=== PATIENT | female | born 1980 | race African-American/Black ===

== ENCOUNTER 2022-11-29 11:24 | Outpatient (CLI) | payer BC, OTHER, SELFPAY ==
[2022-11-29 13:56] LABS: Basophils Percent Auto 0.5 % (0.2-1.2); Eosinophils Absolute Auto 0.1 K/mm3 (0-0.3); Eosinophils Percent Auto 1.1 % (0-4.4); Hematocrit 33.4 % (37.0-47.0); Hemoglobin 11.5 g/dL (12.0-15.0); Immature Granulocyte Absolute 0.02 K/mm3 (0.00-0.031); Immature Granulocyte Percent A 0.3 % (0-0.5); Lymphocytes Absolute Auto 3.37 K/mm3 (0.9-3.2); Lymphocytes Percent Auto 44.4 % (18.3-44.2); Mean Corpuscular HGB Conc 34.4 g/dl (32-36); Mean Corpuscular Hemoglobin 25.9 pg (26-34); Mean Corpuscular Volume 75.2 fl (80-100); Mean Platelet Volume 10.4 fl (7.4-10.4); Monocytes Absolute Auto 0.9 K/mm3 (0.1-0.6); Monocytes Percent Auto 11.6 % (2.6-8.5); Neutrophils Absolute Auto 3.2 K/mm3 (1.3-6.7); Neutrophils Percent Auto 42.1 % (45.5-73.1); Platelet Count Result 488 k/mm3 (150-375); Red Blood Count 4.44 M/mm3 (4.2-5.4); Red Cell Distribution Width 14.7 % (11.5-14.5); White Blood Count 7.6 K/mm3 (4.5-10.0)
== END 2022-11-29 11:25 | disposition home or self-care (01) ==
PROVIDERS: PCP Internal Medicine Infectious Disease; Visit Provider Obstetrics & Gynecology
DX: N85.2 Hypertrophy of uterus (principal); Z01.818 Encounter for other preprocedural examination
CPT/HCPCS: 36415; 85025; 86850; 86900; 86901

== ENCOUNTER 2022-12-06 00:27 | Day surgery (SDC) | payer BC, OTHER, SELFPAY ==
[2022-11-26 12:32] VITALS: BMI 40.4
--- NOTE | 2022-11-26 12:38 | PC.NURSE ---
Report to the Outpatient Waiting Room, entrance under the green pavilion located off [facility], at time 7:30 on date 12/06/22. Planned Procedure Time: 9:30. Time changes happen often and if your time is changed the preop area will call you the afternoon before. - You and your visitor will be asked to self-screen and do not enter if you have any COVID symptoms. - Only one visitor is requested with a max of two and NO children visitors are allowed at this time. - The patient visitor may be requested to leave or wait in car when not with patient due to distancing restrictions. - A mask is REQUIRED within the hospital. Patients may have clear liquids (water, carbonated beverages, clear teas, apple juice) until 3 hours prior to surgery (6:30) with a maximum of 20 ounces. - No food from midnight until time of surgery Take the following medications with a SIP of water the morning of surgery: NASAL SPRAY IF NEEDED Medications to discontinue per physician: N/A Date to take last dose: N/A Please no make-up, nail canadian, hairspray, perfume, deodorant, or body powder the day of surgery. No jewelry (including any body piercings) or valuables the day of surgery, leave them at home. Please take a shower or bath the night before, or the morning of, surgery with an antibacterial soap. Wear comfortable, loose fitting clothing. - Jewelry must be removed prior to entering the operating room. Rings and piercings that are not removed may be cut off. - The hospital will not accept responsibility for valuables. - Please leave all valuables, including medications, at home the day of surgery. If you are going home after surgery, a licensed water taxi driver must drive you home. - NO public transportation without another adult if you receive anesthesia. - We recommend that an adult stay with you for 24 hours following discharge. - We also recommend that you do not drive, make important decision, drink alcoholic beverages, or take any drugs that were not prescribed by your health care provider for at least 24 hours after your discharge time. Follow any additional instructions given to you from your surgeon. If you or anyone in your household have experienced Covid symptoms in the past week, please notify your surgeon or the nurse liaison at the phone number below for possible testing. Telephone instructions given to PT - DALE RICH and asked if any additional questions and then verbalized understanding. Patient advised to call surgeon office or pre surgery nurse liaison [phone] if any additional questions.
--- NOTE | 2022-12-04 06:33 | P.HP_ITS ---
H&P: HPI History of Present Illness Date/Time: 12/04/22 06:33 Chief Complaint: pelvic pain and bleeding with uterine fibroids Narrative: this is a 42-year-old 3 para 3 admitted for robotic total vaginal hysterectomy bilateral salpingectomy secondary to fibroid uterus and pelvic pain. Risks and benefits reviewed including not exclusive of , aspiration pneumonia, bleeding, transfusion, perforation injury to bowel, bladder, ureters, or other internal organs with need for open laparotomy. She received the ACOG handout entitled hysterectomy as well as individually and out. She had all questions answered and asked to proceed [facility] Family History Family History Father Hypertension Mother Hypertension Social History Social History Smoking status: Never smoker Alcohol intake: never Substance use: never Substance use type: does not use Spiritual care concerns: No Meds Home Medications and Allergies Home Medications Medication Instructions Recorded Confirmed Type azelastine 137 mcg (0.1 %) nasal 1 spray intranasal BID 11/26/22 11/26/22 History spray aerosol Allergies Allergy/AdvReac Type Severity Reaction Status Date / Time Sulfa (Sulfonamide Allergy Unknown Joint Pain Verified 11/26/22 12:31 Antibiotics) Exam Const: General: cooperative, healthy appearing and comfortable Nutritional Appearance: average body habitus Orientation/consciousness: oriented to person, oriented to place and oriented to time HENMT: Head: normal to inspection Resp: Effort & Inspection: normal respiratory effort Cardio: Rate: regular rate Rhythm: regular rhythm Heart sounds: S1 normal heart sound present and S2 normal heart sound present GI: Inspection: normal to inspection Auscultation: normal bowel sounds : External Female Exam: normal external appearance Speculum Exam - Vagina: normal appearance of the vagina Speculum Exam - Cervix: normal appearance of the cervix Bimanual exam- vagina & uterus: enlarged Bimanual Exam- Adnexa, other: normal adnexae Assessment and Plan Assessment and plan (1) Uterine fibroids affecting : Code(s): O34.10 - Maternal care for benign tumor of corpus uteri, unspecified trimester; D25.9 - Leiomyoma of uterus, unspecified Status: Acute (2) Dyspareunia: Status: Acute Plan robotic total vaginal hysterectomy and bilateral salpingectomy
[2022-12-06] VITALS (10 sets, daily range): BP systolic 108–133; BP diastolic 66–80; PULSE 65–102; RESP 15–20; TEMP 36.4–37.6; O2SAT 97–100
[2022-12-06] MEDS: ACETAMINOPHEN 500 MG TABLET 1000 MG PO (06:51)
[2022-12-06] MEDS: LACTATED RINGERS 1,000 ML 30 ML IV CONT ×2 (06:55→09:01)
[2022-12-06] MEDS: KETOROLAC 15 MG/ML VIAL (*BKC) IV PUSH (06:58)
--- NOTE | 2022-12-06 07:01 | P.PNAN_ITS ---
Anes - Initial Pre Proc Eval Procedure: Operation Date: 12/06/22 07:30 Proposed Procedures p Robotic Assisted Total Vaginal Hysterectomy, Bilateral Salpingectomy - Ramses Siddiqi MD Date/Time: 12/06/22 07:01 Surgeon: Ramses Siddiqi MD Pre Op Diagnosis: enlarged uterus,pains,fibroids,dyspurenia Patient Data Age: 42 Gender: F Height: 1.5 m Weight: 90.72 kg Allergies Allergy/AdvReac Type Severity Reaction Status Date / Time Sulfa (Sulfonamide Allergy Unknown Joint Pain Verified 12/06/22 06:05 Antibiotics) Home Medications Medication Instructions Recorded Confirmed Type azelastine 137 mcg (0.1 %) nasal 1 spray intranasal BID 11/26/22 12/06/22 History spray aerosol Patient hx anesthesia problems: none Family hx anesthesia problems: none Results Review: All pre-operative results and documents have been reviewed as part of the pre- operative evaluation. PMFSH Family History Family History Father Hypertension Mother Hypertension Social History Social History Smoking status: Never smoker Alcohol intake: never Substance use: never Substance use type: does not use Living arrangements: with family Spiritual care concerns: No Anes - Eval Final PreProcedure Day of Procedure 12/06/22 07:01 Patient weight: morbidly obese Heart: regular rate and rhythm Lungs: clear to auscultation Airway: Mallampati scale class II Neurological: alert and oriented Last oral intake: >/= 8 hours ASA classification: III Emergent: no Anesthetic plan: proceed Anesthesia type and monitoring: general ETT and standard monitoring Results Review: All pre-operative results and documents have been reviewed as part of the pre- operative evaluation. Informed Consent: The patient's anesthetic plan and its attendant risks and benefits were discussed with the patient/family/POA. Questions were solicited and answers provided to the satisfaction of the patient/family/POA.
--- NOTE | 2022-12-06 07:04 | WPDHPUPDATE1 ---
History and Physical Update Update Date/Time: 12/06/22 07:04 History and Physical has been reviewed, including an updated exam of the patient. There are NO changes in the patient's condition. Risks, benefits, and alternatives have been discussed and questions answered. Patient agrees to proceed with procedure.
[2022-12-06] MEDS: ceFAZolin 2 GM/D5W 50 ML 2 GM/50 ML BAG IVPB (07:23)
--- NOTE | 2022-12-06 08:48 | W.PM.PROC2 ---
Procedure Note - Detailed Date of Procedure 12/06/22 Pre-op Diagnosis enlarged uterus,pains,fibroids,dyspurenia Post-op Diagnosis Same (Extensive adhesions) Procedure Performed robotic total vaginal hysterectomy with extensive lysis of adhesions Surgeon Ramses Siddiqi MD Anesthesia General Indications is a 42-year-old female with a markedly enlarged uterus pain Findings tubes were surgically absent. Ovaries appeared within normal limits. The uterus was 484g irregular fibroids adhesions were also noted from the uterus to bladder to the anterior wall as well as adhesions from the omentum to the anterior abdominal. Description of Procedure Patient is prepped draped in the normal sterile fashion placed in the dorsal lithotomy position. Under excellent general trach anesthesia weighted speculum placed posterior fornix vagina. Anterior lip of the cervix grasped with single-tooth tenaculum. Uterus sounded to12+ cm. Serial dilatation with fragmented dilators performed followed by passage of the 10 CHASE and the 3. 0.5 cold cup. Sixteen Khmer catheter was placed in the bladder. The weighted speculum in there other instruments removed and the gloves were changed. Supraumbilical incision made the Veress needle passed in the abdomen. Abdomen filled with CO2 gas to 15mm Hg. The 8mm trocar advanced in the abdomen. Downside visualized no injurySeen. Patient placed in Trendelenburg to21?. Right and left lateral quadrant incision made the 8mm trocars advanced under direct visualization assuring no injury right upper quadrant incision made and the 10mm trocar advanced under direct visualization assuring no injury. Multiple adhesions were seen anteriorly from the omentum to the anterior abdominal wall the uterus was tremendously bid and stuck to the bladder to the fundus as well as the anterior abdominal. The robot was docked. Attention was turned to the deputy county counsel. Multiple adhesions were noted and the sharp dissection was needed to remove the omentum from the anterior abdominal wall. Once this had been cleared the uterus is noted be large irregular and such dock anteriorly to the anterior abdominal wall sharp dissection serially layer by layer was undertaken to get down to the area were the round ligaments were. The round ligament on the left was grasped, burned, cut. Anterior bladder flap was formed by sharply dissecting the peritoneum and the resecting bladder laterally and caudally away from the cervix and uterus and to the opposite round ligament could be grasped burned cut. Next the utero-ovarian ligament on the left was skeletonized with multiple adhesions clamping burning cutting and bringing this to the previously cut round ligament. In like fashion utero-ovarian ligament on the right was skeletonized clamping burning cutting and bringing this to the previously cut round ligament. The cardinal broad ligaments were then serially clamped burned and cut and brought down the edge of the uterus until the uterine vessels could be seen. These were large and tortuous. These were clamped, burned, cut individually. In like fashion the cardinal broad ligaments on the right were serially skeletonized clamping burning cutting hugging the cervix uterus until the uterine vessels on the right could be seen these again were large and tortuous and were individually clamped, burned, cut. At that point a colpotomy incision was made. The uterus was too large to go through the incisions show multiple incisions were made to snow: The large fibroids that were present allowing these to come through in 1 swoop. Uterus [id number]. The vagina was then closed with continuous running 0V lock from lateral edge to lateral edge and back to midline. Irrigation undertaken to clear and the raw surface area sprinkled with [place] term. The instruments were withdrawn. The gas removed from the abdomen after the robot had been undocked. The the trocars removed incisions closed wi
[2022-12-06] MEDS: fentaNYL CITRATE INJ (*CRX) 100 MCG/2 ML VIAL 25 MCG IV PUSH ×4 (09:22→09:50)
--- NOTE | 2022-12-06 10:20 | PC.NURSE ---
This patient, Saeid Castaneda, was received from [facility] on 12/06/22 at 1020. Patient/family oriented to unit policies and routines
[2022-12-06] MEDS: DEXTROSE 5%/LACTATED RINGERS 1,000 ML 125 ML IV CONT (10:39)
[2022-12-06] MEDS: KETOROLAC 30 MG/ML VIAL (*BKC) IV PUSH ×2 (10:41→17:01)
[2022-12-06] MEDS: HYDROcodone/acetaminophen (*CRX) 5-325 MG TABLET 1 TAB PO ×3 (14:24→23:10)
[2022-12-06] MEDS: DOCUSATE SODIUM 100 MG CAPSULE PO (17:01)
[2022-12-06] MEDS: IBUPROFEN 600 MG TABLET PO (23:10)
[2022-12-07 05:00] VITALS: BP 127/75; PULSE 85; RESP 16; TEMP 36.6
[2022-12-07] MEDS: HYDROcodone/acetaminophen (*CRX) 5-325 MG TABLET 1 TAB PO ×2 (05:03→12:27)
[2022-12-07] MEDS: IBUPROFEN 600 MG TABLET PO ×2 (05:03→12:27)
[2022-12-07 05:25] LABS: Basophils Percent Auto 0.2 % (0.2-1.2); Hematocrit 29.2 % (37.0-47.0); Hemoglobin 10.1 g/dL (12.0-15.0); Immature Granulocyte Absolute 0.03 K/mm3 (0.00-0.031); Immature Granulocyte Percent A 0.3 % (0-0.5); Lymphocytes Absolute Auto 3.11 K/mm3 (0.9-3.2); Lymphocytes Percent Auto 26.2 % (18.3-44.2); Mean Corpuscular HGB Conc 34.6 g/dl (32-36); Mean Corpuscular Hemoglobin 26.2 pg (26-34); Mean Corpuscular Volume 75.6 fl (80-100); Mean Platelet Volume 9.8 fl (7.4-10.4); Monocytes Absolute Auto 0.6 K/mm3 (0.1-0.6); Monocytes Percent Auto 5.4 % (2.6-8.5); Neutrophils Absolute Auto 8.1 K/mm3 (1.3-6.7); Neutrophils Percent Auto 67.9 % (45.5-73.1); Platelet Count Result 338 k/mm3 (150-375); Red Blood Count 3.86 M/mm3 (4.2-5.4); Red Cell Distribution Width 14.8 % (11.5-14.5); White Blood Count 11.9 K/mm3 (4.5-10.0)
--- NOTE | 2022-12-07 08:58 | WPDANESPN ---
Anes - Prog Note Post-Op Date/Time: 12/07/22 08:58 Cardiovascular status: normal Respiratory status: normal Airway patency: baseline Mental status: baseline Post-Op hydration status: normal Vital Signs: Last Vital Signs Temp 36.6 C 12/07/22 05:00 Pulse 85 12/07/22 05:00 Resp 16 12/07/22 05:00 BP 127/75 12/07/22 05:00 Pulse Ox 100 12/06/22 16:30 O2 Del Method Room Air 12/06/22 10:00 O2 Flow Rate 10 12/06/22 09:15 Pain Score (VAS): 0 I/O: Intake & Output 12/06/22 12/07/22 12/07/22 23:59 07:59 15:59 Intake Total 1500 300 Output Total 1700 500 Balance -200 -200 Laboratory Tests 12/07/22 05:07 12/07/22 05:07 WBC 11.9 H RBC 3.86 L Hgb 10.1 L Hct 29.2 L MCV 75.6 L MCH 26.2 MCHC 34.6 RDW 14.8 H Plt Count 338 MPV 9.8 Immature Gran % (Auto) 0.3 Neut % (Auto) 67.9 Lymph % (Auto) 26.2 [place] % (Auto) 5.4 Eos % (Auto) 0.0 Baso % (Auto) 0.2 Lymph # (Auto) 3.11 [place] # (Auto) 0.6 Eos # (Auto) 0.0 Baso # (Auto) 0.0 Abs Immat Gran (auto) 0.03 Absolute Neuts (auto) 8.1 H Absolute Nucleated RBC 0.0 Nucleated RBC % 0.0 Post-procedural complaints: none Patient Feedback: Patient satisfied with anesthetic care.
[2022-12-07] MEDS: SIMETHICONE 80 MG TAB.CHEW PO (09:20)
[2022-12-07] MEDS: DOCUSATE SODIUM 100 MG CAPSULE PO (09:20)
[2022-12-07] MEDS: HYDROcodone/acetaminophen (*CRX) 10-325 MG TABLET 1 TAB PO (09:20)
[2022-12-07] MEDS: ENOXAPARIN 40 MG/0.4 ML SYRINGE SUB-Q (09:20)
[2022-12-07 10:00] VITALS: PULSE 110; RESP 16; O2SAT 100
--- NOTE | 2022-12-07 12:25 | PM.GYNPNOP ---
FUGITIVE INVESTIGATOR - A/P Assessment and plan (1) Dyspareunia: Status: Acute Assessment and Plan: A: POD#1, s/p robotic assisted TVH, doing well. P: Home to f/u 2 weeks in office. (2) Fibroids: Code(s): D21.9 - Benign neoplasm of connective and other soft tissue, unspecified Status: Acute Postoperative Procedures: Procedures Operation Date: 12/06/22 07:30 Actual Procedure Side Surgeon p Robotic Assisted Total Vaginal Hysterectomy, Extensive Lysis of Adhesions Bilateral Ramses Siddiqi MD Postoperative day: 1 Postoperative status: doing well Postoperative plan: routine post-op care Time Spent With Patient Time with patient: less than 15 minutes FUGITIVE INVESTIGATOR- PN:Subj Post-Op Subjective Date/time seen: 12/07/22 12:25 Interval history: Pain OK. Tolerating diet. Voiding. Would like to go home. Exam Narrative: AVSS I/O OK ABD soft, nontender. Incisions c/d/i. EXT nontender FUGITIVE INVESTIGATOR - PN: Obj Data Vital Signs Vital Signs: Vital Signs - 24 hr 12/06/22 12:34 12/06/22 16:30 12/06/22 21:11 Temperature 37.2 C 37.6 C 36.6 C Pulse Rate 85 102 H 95 Respiratory Rate 16 18 16 Blood Pressure 118/68 126/69 133/68 Pulse Oximetry 100 100 Oxygen Delivery 12/07/22 05:00 12/07/22 10:00 Temperature 36.6 C Pulse Rate 85 110 H Respiratory Rate 16 16 Blood Pressure 127/75 Pulse Oximetry 100 Oxygen Delivery Room Air Intake/Output Intake/Output: Intake & Output 12/04/22 12/05/22 12/06/22 12/07/22 23:59 23:59 23:59 23:59 Intake Total 2190 550 Output Total 2460 1200 Balance -270 -650 Meds/Results Medications: Active Medications Generic Name Dose Route Start Last Admin Trade Name Freq PRN Reason Stop Dose Admin Hydrocodone Bitart/Acetaminophen 1 tab 12/06/22 10:14 12/07/22 05:03 Hydrocodone/Acetaminophen (*Crx) 5-325 Mg Tablet PO 1 tab Q3H PRN Administration Pain Rated 5 or Less Hydrocodone Bitart/Acetaminophen 1 tab 12/06/22 10:14 12/07/22 09:20 Hydrocodone/Acetaminophen (*Crx) 10-325 Mg Tablet PO 1 tab Q3H PRN Administration Pain Rated 6 or Greater Docusate Sodium 100 mg 12/06/22 10:14 12/07/22 09:20 Docusate Sodium 100 Mg Capsule PO 100 mg BID IRMA Administration Enoxaparin Sodium 40 mg 12/06/22 10:14 12/07/22 09:20 Enoxaparin 40 Mg/0.4 Ml Syringe SUB-Q 40 mg DAILY IRMA Administration Ibuprofen 600 mg 12/06/22 10:14 12/07/22 05:03 Ibuprofen 600 Mg Tablet PO 600 mg Q6H PRN Administration Cramping Ketorolac Tromethamine 30 mg 12/06/22 10:14 12/06/22 17:01 Ketorolac 30 Mg/Ml Vial (*Bkc) IV PUSH 12/11/22 10:13 30 mg Q6H PRN Administration Pain Rated 4-6 Naloxone HCl 0.1 mg 12/06/22 10:14 Naloxone Hcl 0.4 Mg/Ml Vial IV PUSH Q2M PRN Respiratory rate less than 10 Ondansetron HCl 4 mg 12/06/22 10:14 Ondansetron Inj 4 Mg/2 Ml Vial IV PUSH Q6H PRN Nausea And Vomiting Simethicone 80 mg 12/06/22 10:14 12/07/22 09:20 Simethicone 80 Mg Tab.Chew PO 80 mg Q2H PRN Administration Gas Labs 12/07/22 05:07 Labs: Laboratory Results - last 24 hr 12/07/22 05:07 WBC 11.9 H RBC 3.86 L Hgb 10.1 L Hct 29.2 L MCV 75.6 L MCH 26.2 MCHC 34.6 RDW 14.8 H Plt Count 338 MPV 9.8 Immature Gran % (Auto) 0.3 Neut % (Auto) 67.9 Lymph % (Auto) 26.2 [place] % (Auto) 5.4 Eos % (Auto) 0.0 Baso % (Auto) 0.2 Lymph # (Auto) 3.11 [place] # (Auto) 0.6 Eos # (Auto) 0.0 Baso # (Auto) 0.0 Abs Immat Gran (auto) 0.03 Absolute Neuts (auto) 8.1 H Absolute Nucleated RBC 0.0 Nucleated RBC % 0.0
--- NOTE | 2022-12-07 12:31 | P.DS_ITS ---
DS: Admitting Diagnosis Discharge Date 12/07/22 Admitting Diagnosis Uterine fibroids, pelvic pain DS: Discharge Diagnosis Discharge Diagnosis (1) Fibroids: Code(s): D21.9 - Benign neoplasm of connective and other soft tissue, unspecified Status: Acute (2) Dyspareunia: Status: Acute DS: Summary Hospital Course Hospital Course: Admitted on the date of scheduled surgery. Please see op note. Did well postop and was able to go home on POD1. Time Spent with Patient Time attestation: Total time spent providing and/or coordinating discharge services: DS: Data Data Completed and Pending Pending studies at discharge: Pending at discharge 12/06/22 08:24 Surgical [PTH] Routine Labs on day of discharge: Labs from last 24 hours 12/07/22 05:07 WBC 11.9 H RBC 3.86 L Hgb 10.1 L Hct 29.2 L MCV 75.6 L MCH 26.2 MCHC 34.6 RDW 14.8 H Plt Count 338 MPV 9.8 Immature Gran % (Auto) 0.3 Neut % (Auto) 67.9 Lymph % (Auto) 26.2 [place] % (Auto) 5.4 Eos % (Auto) 0.0 Baso % (Auto) 0.2 Lymph # (Auto) 3.11 [place] # (Auto) 0.6 Eos # (Auto) 0.0 Baso # (Auto) 0.0 Abs Immat Gran (auto) 0.03 Absolute Neuts (auto) 8.1 H Absolute Nucleated RBC 0.0 Nucleated RBC % 0.0 Discharge Plan Discharge Patient Disposition: Home, Self-Care Discharge Instructions: Nothing in vagina for 6 weeks. Call or return if temperature above 100.4? F, increased abdominal pain, increased vaginal bleeding or any new problems. Patient Instructions: Laparoscopic Hysterectomy (DC) Stand Alone Forms: General Discharge Instructions Follow-up/Referrals: Ramses Timmons MD [Physician] - 2 Weeks Discharge Medications: New hydrocodone-acetaminophen 5-325 mg tablet 1 - 2 tablet PO Q6H PRN (Reason: pain) Qty: 30 0RF Continued azelastine 137 mcg (0.1 %) aerosol,spray 1 spray INTRANASAL BID
== END 2022-12-07 13:35 | disposition home or self-care (01) ==
LOC: ANHSURGERY 07:05 → ANHOB2 10:21
PROVIDERS: PCP Internal Medicine Infectious Disease; Visit Provider Obstetrics & Gynecology
PROC: (CPT 58554; principal; 2022-12-06 07:30)
DX: D25.1 Intramural leiomyoma of uterus (principal); N84.0 Polyp of corpus uteri; N84.1 Polyp of cervix uteri; N72 Inflammatory disease of cervix uteri; R10.2 Pelvic and perineal pain; N94.10 Unspecified dyspareunia; Z23 Encounter for immunization; E66.01 Morbid (severe) obesity due to excess calories; Z68.41 Body mass index [BMI] 40.0-44.9, adult
CPT/HCPCS: 58554; S2900; 36415; 85025; 88307; 90471; 90686; 99199; A9270; G0008; J0690; J1100; J1650; J1885; J2250; J2270; J2370; J2405; J2704; J2710; J3010; J7030; J7120; J7121